=== PATIENT | male | born 1995 | race Caucasian/White ===

== ENCOUNTER 2016-09-25 20:07 | Emergency (ER) | payer MEDICAID, OTHER ==
[~2016-09-25] VITALS: Ht 180.3 cm; Wt 78.2 kg
[~2016-09-25 20:07] MED LIST: IBUP-1542 PO
[2016-09-25 20:12] VITALS: Ht 180.3 cm; Wt 78.2 kg
[2016-09-25] MEDS ORDERED: DIPHTH/TET/ACEL PERTUSS (ADULT) 0.5 ML VIAL IM* ONE (21:00)
[2016-09-25] MEDS ORDERED: LIDOCAINE 1% (MDV) 20 ML INJ SC ONE (21:00)
[2016-09-25] MEDS ORDERED: ACET325T33 PO (22:18)
--- NOTE | 2016-09-25 22:34 | ERA ---
ER Documentation Chief Complaint Date/Time DATE: 09/25/16 TIME: 22:28 Chief Complaint facial laceration HPI 20-year-old male presenting one hour status post facial laceration to the face. Patient was at work when he stood up a metal pipe lacerated the skin on the left face. No loss of consciousness, altered mental status, vomiting or impacts of the head. Tetanus status is not up-to-date. No recent antibiotic use or hospitalization. No other complaints and describes no other associated manifestations. ROS All systems reviewed and are negative except as per history of present illness. Medications Home Meds Active Scripts Acetaminophen* (Tylenol*) 325 Mg Tablet, 1 TAB PO Q8 Y for PAIN AND OR ELEVATED TEMP, #20 TAB Prov:MICHAEL NATH PA-C 09/25/16 Ibuprofen* (Motrin*) 600 Mg Tab, 600 MG PO Q6, #20 TAB Prov:CHAVO MANDUJANO PA-C 08/23/15 Allergies Allergies: Coded Allergies: No Known Allergy (Unverified , 08/23/15) PMhx/Soc Medical and Surgical Hx: pt denies Medical Hx, pt denies Surgical Hx History of Surgery: No Anesthesia Reaction: No Hx Neurological Disorder: No Hx Respiratory Disorders: No Hx Cardiac Disorders: No Hx Psychiatric Problems: No Hx Miscellaneous Medical Probl: No Hx Alcohol Use: Yes (OCCASIONALLY) Hx Substance Use: No Hx Tobacco Use: No Smoking Status: Never smoker Physical Exam Vitals Vital Signs Date Time Temp Pulse Resp B/P Pulse Ox O2 Delivery O2 Flow Rate FiO2 09/25/16 20:12 98.1 71 20 137/77 97 Physical Exam Const: Well-appearing well-developed 20-year-old male in no acute distress Head: Atraumatic, normocephalic Eyes: Normal Conjunctiva. PERRLA. EOMI bilaterally. ENT: Normal External Ears, Nose and Mouth. Neck: Full range of motion..~ No meningismus. Resp: Clear to auscultation bilaterally Cardio: Regular rate and rhythm, no murmurs Abd: Soft, non tender, non distended. Normal bowel sounds Skin: Laceration starting lateral to the nasal bridge and inferior to the left eye spanning 1 cm horizontally, then tilting upwards 40 and continuing laterally for 2 cm. No foreign bodies identified. No petechiae or rashes Back: No midline or flank tenderness Ext: No cyanosis, or edema Neur: Awake and alert Psych: Normal Mood and Affect Results 24 hrs Current Medications Medications (Trade) Dose Ordered Sig/Shahriar Route PRN Reason Start Time Stop Time Status Last Admin Dose Admin Diphtheria/ Tetanus/Acell Pertussis (Adacel) 0.5 ml ONCE ONCE IM* 09/25/16 21:00 09/25/16 21:01 DC Lidocaine (Xylocaine 1% (Mdv) 20 ml) 20 ml ONCE ONCE SC 09/25/16 21:00 09/25/16 21:01 DC Procedures/MDM 20-year-old male presenting for laceration to the face over the left zygomatic arch 1 cm horizontally than anger relating upwards 40% and continuing 2 cm laterally. Laceration angulated upwards thus despite the shallow nature of the wound sutures were required. Clean laceration without foreign body identified. No signs of infection. 5 mL of lidocaine without epi was used for anesthesia. 9 6-0 nylon simple sutures were placed. There was good approximation of the wound. No complications during the procedure. Patient was neurovascularly intact before and after the procedure. I have spoke with the patient regarding their condition and future management. They have verbally responded that they understand their status and treatment plan. The patients vitals are stable, and their current condition is appropriate for discharge. The patient will be given discharge instructions with return precautions. Departure Diagnosis: Primary Impression: Laceration of face Qualified Code: S01.81XA - Laceration of face, initial encounter Condition: Stable Patient Instructions: Laceration, All Additional Instructions: You were seen in the emergency department for your laceration which has been closed. Your wound has been cleaned and covered with antibiotic ointment. Please keep this dressing on for 12 hours. After 12 hours take the dressing down and gently clean the wound with ONLY soap and water. If you were given antibiotics, complete the course of treatment as prescribed. Look for signs of infection such as increasing redness, swelling, pain or drainage of pus (yellow/ green fluid). If you see signs of infection, please return to the emergency department immediately. If there are no signs of infection, cover your wound with antibiotic ointment and reapply a dressing. You will form a scar. To keep from scarring too dark, keep your wound covered and out of the sun for the next 6-12 months. Consider using OTC anti-scar creams such as Mederma. Return to the ED for a wound check in 2 days and again for suture removal in 5-7 days. MICHAEL NATH PA-C Sep 25, 2016 22:34
== END 2016-09-25 22:30 | disposition home or self-care (01) ==
LOC: FTE 20:07
DX: S01.81XA Laceration without foreign body of other part of head, initial encounter (principal); W26.8XXA Contact with other sharp object(s), not elsewhere classified, initial encounter; Y92.89 Other specified places as the place of occurrence of the external cause
CPT/HCPCS: 12013; Z7502; Z7610

== ENCOUNTER 2018-01-04 13:22 | Emergency (ER) | END 2018-01-04 15:14 | disposition home or self-care (01) ==

== ENCOUNTER 2018-02-05 05:34 | Emergency (ER) | END 2018-02-05 07:07 | disposition home or self-care (01) ==

== ENCOUNTER 2018-02-14 00:27 | Emergency (ER) | payer SELFPAY ==
[~2018-02-14] VITALS: Ht 172.7 cm; Wt 87.9 kg
[~2018-02-14 00:27] MED LIST changes: +ACET325T33 PO; +DICY10CA40 PO; +ONDA4TAB14 PO
[2018-02-14 00:31] VITALS: BP 135/88; PULSE 128; RESP 20; Ht 172.7 cm; Wt 87.9 kg
== END 2018-02-14 01:02 | disposition left against medical advice (07) ==
LOC: E/R 00:27
DX: Z53.21 Procedure and treatment not carried out due to patient leaving prior to being seen by health care provider (principal)

== ENCOUNTER 2018-03-25 00:40 | Emergency (ER) | payer OTHER ==
[~2018-03-25] VITALS: Ht 177.8 cm; Wt 89.0 kg
[2018-03-25 00:41] VITALS: BP 128/82; PULSE 107; RESP 19; Ht 177.8 cm; Wt 89.0 kg
--- NOTE | 2018-03-25 02:59 | ERD ---
ER Documentation Chief Complaint Chief Complaint RT HAND LACERATION S/P FALLING OFF OF SKATEBOARD AND LANDING ON GLASS HPI 22-year-old male [id number] presents with laceration to his right hand that was sustained today when he fell while skateboarding. He believes he fell onto some glass and is not sure if there is some glass still inside. No numbness or tingling or loss of range of motion. His tetanus vaccination is up-to-date. No head injury or KO. ROS All systems reviewed and are negative except as per history of present illness. Medications Home Meds Active Scripts Dicyclomine HCl (Dicyclomine HCl) 10 Mg Capsule, 10 MG PO TID PRN for ABDOMINAL CRAMPING, #20 CAP Prov:GINA GILL PA-C 02/05/18 Ondansetron (Ondansetron Odt) 4 Mg Tab.rapdis, 4 MG PO Q6H PRN for NAUSEA AND/OR VOMITING, #10 TAB Prov:GINA GILL PA-C 02/05/18 Acetaminophen* (Tylenol*) 325 Mg Tablet, 1 TAB PO Q8 PRN for PAIN AND OR ELEVATED TEMP, #20 TAB Prov:MICHAEL NATH PA-C 09/25/16 Ibuprofen* (Motrin*) 600 Mg Tab, 600 MG PO Q6, #20 TAB Prov:CHAVO MANDUJANO PA-C 08/23/15 Allergies Allergies: Coded Allergies: No Known Allergy (Unverified , 08/23/15) PMhx/Soc Medical and Surgical Hx: pt denies Medical Hx, pt denies Surgical Hx History of Surgery: No Anesthesia Reaction: No Hx Neurological Disorder: No Hx Respiratory Disorders: No Hx Cardiac Disorders: No Hx Psychiatric Problems: No Hx Miscellaneous Medical Probl: No Hx Alcohol Use: Yes (Social) Hx Substance Use: Yes (Marijuana/Meth) Hx Tobacco Use: No Smoking Status: Never smoker FmHx Family History: No diabetes Physical Exam Vitals Vital Signs Date Temp Pulse Resp B/P (MAP) Pulse Ox O2 O2 Flow FiO2 Time Delivery Rate 03/25/18 94.5 107 19 128/82 96 00:41 (97) Physical Exam Const: No acute distress Head: Atraumatic Eyes: Normal Conjunctiva ENT: Normal External Ears, Nose and Mouth. Neck: Full range of motion. No meningismus. Resp: Clear to auscultation bilaterally Cardio: Regular rate and rhythm, no murmurs Hand -right Skin: Laceration to the right hand dorsal surface along the base of the fifth metacarpal, small 1 mm foreign body seen and removed Compartments: Soft Sensation: Intact shoulder/pinky/middle finger/thumb web space Bones: Nontender Snuffbox: Nontender Joints: No effusion Wrist: Flex/Ext: Normal Uln/Radial deviation: Normal Pron/Supination Normal Finger: Flex/Ext: Normal Add/abd: Normal Thumb: Flex/Ext: Normal Opposition: Normal Thumbs up: Normal Procedures/MDM 22-year-old presents with laceration after fall. He is neurovascularly intact. X-rays are negative for fracture dislocation but does show 1 mm foreign body which after the patient was anesthetized was able to be located and removed prior to suturing. The skin edges of the laceration were infiltrated with 1% lidocaine . The laceration was irrigated with copious amounts of normal saline. The wound was prepped with Betadine. On examination under direct light, there was no foreign body seen. The laceration was repaired with simple interrupted sutures. After repair, there was no continuing bleeding on repair and there did not appear to be any complication related to repair. The patient tolerated the procedure well and the wound was appropriately dressed and bandaged. I recommended the patient return in 2 days for a wound check and 7-10 days for removal of sutures. Patient counseled regarding my diagnostic impression and care plan. Prior to discharge all questions answered. Pt agrees with treatment plan and understands strict return precautions. Pt is instructed to follow up with primary care provider within 24-48 hours. Precautionary instructions provided including instructions to return to the ER if not improving or for any worsening or changing symptoms or concerns. Departure Diagnosis: Primary Impression: Laceration Condition: Stable Patient Instructions: Laceration, Hand Additional Instructions: Call your primary care doctor TOMORROW for an appointment during the next 1-2 days.See the doctor sooner or return here if your condition worsens before your appointment time. Follow up with your physician to remove the stitches:For Face wounds 5-7 days.For Elsewhere on the body 7-10 days. JOSY TAY PA-C Mar 25, 2018 02:59
== END 2018-03-25 03:15 | disposition home or self-care (01) ==
LOC: FTE 00:40
DX: S61.411A Laceration without foreign body of right hand, initial encounter (principal); V00.131A Fall from skateboard, initial encounter; Y92.9 Unspecified place or not applicable
CPT/HCPCS: 12001; 73130; Z7502